=== PATIENT | female | born 1955 | race Two or more races ===

== ENCOUNTER 2022-01-23 10:20 | Emergency (ER) | payer MEDICARE, BC, MEDICAID ==
[~2022-01-23] VITALS: Ht 154.9 cm; Wt 63.6 kg
[2022-01-23 10:24] VITALS: BP 146/56
[2022-01-23] MEDS ORDERED: LIDOcaine 5% patch TP STA ×2 (12:45→13:31)
[2022-01-23] MEDS ORDERED: METH4TAB81 PO (12:45)
[2022-01-23] MEDS ORDERED: triamcinolone acetonide 40mg/ml inj IM ONE (12:50)
== END 2022-01-23 13:52 | disposition home or self-care (01) ==
LOC: ER 10:21
DX: M25.512 Pain in left shoulder (principal); Z79.899 Other long term (current) drug therapy
CPT/HCPCS: 73030; 96372; 99283; J3301; A4565